=== PATIENT | female | born 1960 | race Caucasian/White ===

== ENCOUNTER 2021-09-21 07:33 | Emergency (ER) | payer OTHER, BC ==
[2021-09-21] MEDS ORDERED: Acetaminophen 325 MG Tab PO ONE (07:52)
--- NOTE | 2021-09-21 08:50 | CR ---
Left ankle: 4 views of the left ankle were obtained. Comparison: No prior left ankle study is available. Diffuse soft tissue swelling is seen laterally. Ankle mortise is symmetric. Very slight cortical bump is noted on the the oblique view which is suspicious for nondisplaced fracture. Plantar spur is noted. Minimal calcification is seen within the distal Achilles tendon at the attachment to the calcaneus. Impression: 1. Diffuse soft tissue swelling. 2. Findings suspicious for nondisplaced distal fibular fracture through the lateral malleolus. 3. Plantar spur and small calcifications within the distal Achilles tendon. Diagnostic code #3
--- NOTE | 2021-09-21 08:55 | EDM.PDOC ---
ED HPI GENERAL MEDICAL PROBLEM - General Chief Complaint: Upper Extremity Injury/Pain Stated Complaint: FALL ANKLE INJURY Time Seen by Provider: 09/21/21 07:47 Source of Information: Reports: Patient, RN Notes Reviewed - History of Present Illness INITIAL COMMENTS - FREE TEXT/NARRATIVE: 60 yr old female that fell about 45 minutes ago injuring L ankle. Quite painful to bear weight. No other pain or injury. Pain and swelling more lateral ankle. Left Ankle Pain Score (Numeric/FACES): 5 - Related Data Allergies Allergy/AdvReac Type Severity Reaction Status Date / Time codeine Allergy Cannot Verified 10/01/18 13:57 Remember Penicillins Allergy Cannot Verified 10/01/18 13:57 Remember Home Meds: Home Meds Albuterol [Ventolin HFA] 2 puff INH Q4H PRN 10/01/18 [History] EPINEPHrine [Epipen 2-Arcadio] 1 dose IM ONETIME PRN 10/01/18 [History] Pantoprazole Sodium [Protonix] 20 mg PO DAILY 10/01/18 [History] lisinopriL [Prinivil] 10 mg PO DAILY 10/01/18 [History] rOPINIRole [Requip] 0.5 mg PO BEDTIME 10/01/18 [History] Past Medical History HEENT History: Reports: Other (See Below) Other HEENT History: dental abcess, pharyngitis Cardiovascular History: Reports: High Cholesterol, Hypertension Respiratory History: Reports: Asthma, COPD Gastrointestinal History: Reports: GERD, Other (See Below) Other Gastrointestinal History: epigastric pain Genitourinary History: Reports: None FL[employer] CLE[employer]ER History: Reports: Musculoskeletal History: Reports: Other (See Below) Other Musculoskeletal History: carpal tunnel syndrome, restless leg syndrome, heel pain Neurological History: Reports: None Psychiatric History: Reports: None Endocrine/Metabolic History: Reports: Other (See Below) Other Endocrine/Metabolic History: elevated TSH Hematologic History: Reports: None Immunologic History: Reports: None Oncologic (Cancer) History: Reports: None Dermatologic History: Reports: None - Past Surgical History Head Surgeries/Procedures: Reports: None HEENT Surgical History: Reports: Oral Surgery Cardiovascular Surgical History: Reports: None Respiratory Surgical History: Reports: None GI Surgical History: Reports: None Female Surgical History: Reports: Tubal Ligation Endocrine Surgical History: Reports: None Neurological Surgical History: Reports: None Musculoskeletal Surgical History: Reports: None Oncologic Surgical History: Reports: None Dermatological Surgical History: Reports: None Social & Family History - Tobacco Use Tobacco Use Status *Q: Current Every Day Tobacco User Years of Tobacco use: 50 Packs/Tins Daily: 0.8 - Caffeine Use Caffeine Use: Reports: Coffee - Recreational Drug Use Recreational Drug Use: No Review of Systems - Review of Systems Review Of Systems: See Below Constitutional: Reports: No Symptoms Eyes: Reports: No Symptoms Ears: Reports: No Symptoms Nose: Reports: No Symptoms Mouth/Throat: Reports: No Symptoms Respiratory: Denies: Shortness of Breath Cardiovascular: Denies: Chest Pain GI/Abdominal: Denies: Abdominal Pain, Nausea, Vomiting Musculoskeletal: Reports: Joint Swelling (L ankle). Denies: Back Pain Neurological: Reports: No Symptoms ED EXAM, GENERAL - Physical Exam Exam: See Below General Appearance: Alert, Mild Distress Ears: Normal External Exam Nose: Normal Inspection Head: Atraumatic Neck: Normal Inspection, Supple Respiratory/Chest: No Respiratory Distress Extremities: Joint Swelling (swelling and tenderness L lateral ankle, nontender and without swelling medial ankle, foot nontender, no visible deformity) Neurological: Alert, Oriented, No Motor/Sensory Deficits Skin Exam: Warm, Dry, Normal Color Course - Vital Signs Last Recorded V/S: Last Vital Signs Temp 97 F 09/21/21 07:44 Pulse 76 09/21/21 07:44 Resp 16 09/21/21 07:44 BP 129/86 09/21/21 07:44 Pulse Ox 97 09/21/21 07:44 - Orders/Labs/Meds Orders: Active Orders 24 hr Category Date Time Status Durable Medical Equipment for Discharge [DME for Oth 09/21/21 08:45 Ordered Discharge] [COMM] Stat Durable Medical Equipment for Discharge [DME for Oth 09/21/21 08:46 Ordered Discharge] [COMM] Stat Meds: Medications Discontinued Medications Generic Name Dose Route Start Last Admin Trade Name Freq PRN Reason Stop Dose Admin Acetaminophen 975 mg 09/21/21 07:52 09/21/21 07:57 Acetaminophen 325 Mg Tab PO 09/21/21 07:53 975 mg NOW ONE Administration - Re-Assessments/Exams Free Text/Narrative Re-Assessment/Exam: 09/21/21 09:21 X rays show probable hairline nondisplaced fx L distal fibula. Radiologist agrees. Will place in an air splint, crutches, discharge instr. as documented. Departure - Departure Time of Disposition: 08:47 Disposition: Home, Self-Care 01 Condition: Fair Clinical Impression: Fall Qualifiers: Encounter type: initial encounter Qualified Code(s): W19.XXXA - Unspecified fall, initial encounter Fibula fracture Qualifiers: Encounter type: initial encounter Fibula location: distal Fracture type: closed Fracture morphology: unspecified fracture morphology - Discharge Information Instructions: Fibular Fracture With Rehab-SportsMed Referrals: Susanna Meredith, TRUCK MANAGER [Primary Care Provider] - Forms: ED Department Discharge, ED Return to Work/School Form Additional Instructions: You have what looks like a hairline nondisplaced fracture distal L fibula as discussed. Airsplint L ankle, crutches, nonweight bearing as much as possible. Ice packs and elevation for swelling. See Dr Sanchez, Orthopedist next week, or Nalini Fishman, his PA. Call [phone] for appointment. You may alternate tylenol and ibuprofen as needed for discomfort. Return to ED as needed. Sepsis Event Note (ED) - Evaluation Sepsis Screening Result: No Definite Risk - Focused Exam Vital Signs: Vital Signs Temp Pulse Resp BP Pulse Ox 09/21/21 07:44 97 F 76 16 129/86 97 - My Orders Last 24 Hours: My Active Orders 09/21/21 08:45 Durable Medical Equipment for Discharge [DME for Discharge] [COMM] Stat 09/21/21 08:46 Durable Medical Equipment for Discharge [DME for Discharge] [COMM] Stat - Assessment/Plan Last 24 Hours: My Active Orders 09/21/21 08:45 Durable Medical Equipment for Discharge [DME for Discharge] [COMM] Stat 09/21/21 08:46 Durable Medical Equipment for Discharge [DME for Discharge] [COMM] Stat
== END 2021-09-21 09:05 | disposition home or self-care (01) ==
LOC: JD.ED 07:33
DX: S82.832A Other fracture of upper and lower end of left fibula, initial encounter for closed fracture (principal); J44.9 Chronic obstructive pulmonary disease, unspecified; K21.9 Gastro-esophageal reflux disease without esophagitis; E78.00 Pure hypercholesterolemia, unspecified; I10 Essential (primary) hypertension; Z72.0 Tobacco use; Z88.5 Allergy status to narcotic agent; Z88.0 Allergy status to penicillin; Z79.899 Other long term (current) drug therapy; W18.30XA Fall on same level, unspecified, initial encounter
CPT/HCPCS: 73610; 99283; A9270